=== PATIENT | male | born 1970 | race Caucasian/White ===

== ENCOUNTER 2022-05-28 11:33 | Emergency (ER) | payer OTHER ==
[~2022-05-28] VITALS: Ht 175.3 cm; Wt 89.0 kg
[~2022-05-28 11:33] MED LIST: CEPHALEXIN500 MG PO; DOXYCYCL HYC100 MG PO; LORTAB 10 PO; LORTAB 5/3255 MG PO; NO HOME MEDS; OMNICEF300 M1 OR; POLYTRIM OP
[2022-05-28 15:05] VITALS: BP 138/106
[2022-05-28] MEDS ORDERED: NEURONTIN100 MG PO (15:07)
[2022-05-28] MEDS ORDERED: NAPROXEN500 MG PO (15:07)
[2022-05-28] MEDS ORDERED: FLEXERIL5 M1 PO (15:07)
[2022-05-28 15:17] VITALS: BP 138/106
== END 2022-05-28 15:46 | disposition home or self-care (01) | DRG 563 ==
LOC: ED 11:33
DX: S39.012A Strain of muscle, fascia and tendon of lower back, initial encounter (principal); W17.89XA Other fall from one level to another, initial encounter; Y93.89 Activity, other specified; Y92.89 Other specified places as the place of occurrence of the external cause; Y99.0 Civilian activity done for income or pay